=== PATIENT | female | born 1980 | race Two or more races ===

== ENCOUNTER → 2017-04-14 | Outpatient (CLI) | payer BC | LOC: FIMAGING 07:39 | PROVIDERS: ATTEND Obstetrics & Gynecology | DX: O09.512 Supervision of elderly primigravida, second trimester (principal); Z3A.21 21 weeks gestation of pregnancy ==

== ENCOUNTER → 2017-06-23 | Outpatient (CLI) | payer BC | LOC: FIMAGING 08:22 | PROVIDERS: ATTEND Obstetrics & Gynecology | DX: O09.512 Supervision of elderly primigravida, second trimester (principal); Z3A.31 31 weeks gestation of pregnancy ==